=== PATIENT | male | born 1970 | race Caucasian/White ===

== ENCOUNTER 2017-07-09 22:23 | Observation (INO) | payer MEDICAID, SELFPAY ==
[~2017-07-09] VITALS: Ht 177.8 cm; Wt 69.2 kg
[2017-07-09 22:57] LABS: HEMATOCRIT 38.6 % (39.2-51.8); WHITE BLOOD COUNT 8.8 x10^3/uL (3.4-10)
[2017-07-09 23:08] LABS: ASPARTATE AMINO TRANSFERASE 18 U/L (15-37); BLOOD UREA NITROGEN 17 mg/dL (7-18)
[2017-07-09 23:13] LABS: IS PT STATUS REG ER OR PRE ER? YES
[2017-07-09 23:15] LABS: DAU SCREEN DISCLAIMER
[2017-07-09] MEDS ORDERED: ASPIRIN 325 MG TABLET ONE (23:29)
[2017-07-09] MEDS ORDERED: ASPIRIN 325 MG TABLET PO ONE (23:30)
[2017-07-09] MEDS ORDERED: PLEASE ENTER ALLERGIES MC SCH ×2 (23:30)
[2017-07-10 00:42] VITALS: BP 152/103
[2017-07-10] MEDS ORDERED: ENALAPRILAT 1.25 MG/ML, 2ML IVPush PRN (01:00)
[2017-07-10] MEDS ORDERED: ACETAMINOPHEN 325 MG TABLET PO PRN (01:00)
[2017-07-10] MEDS ORDERED: NITROGLYCERIN 0.4 MG BOTTLE (25 TABS) SL PRN (01:00)
[2017-07-10] MEDS ORDERED: ONDANSETRON ODT 4 MG PO PRN (01:00)
[2017-07-10] MEDS ORDERED: TEMAZEPAM 15 MG CAPSULE PO PRN (01:00)
[2017-07-10] MEDS ORDERED: DOCUSATE 100 MG CAPSULE PO PRN (01:00)
[2017-07-10] MEDS: HEPARIN 5,000 UNITS/ML, 1ML SQ SCH ×2 (01:19→09:59)
[2017-07-10 03:00] VITALS: BP 129/89
[2017-07-10 05:57] LABS: IS PT STATUS REG ER OR PRE ER? NO
[2017-07-10 07:58] VITALS: BP 128/88
[2017-07-10] MEDS ORDERED: REGADENOSON 0.4 MG/5 ML SYRINGE ONE (08:23)
[2017-07-10 11:25] LABS: IS PT STATUS REG ER OR PRE ER? NO
[2017-07-10 14:55] VITALS: BP 127/83
[2017-07-11] MEDS ORDERED: ASPIRIN 325 MG TABLET PO SCH (06:00)
== END 2017-07-10 17:15 | disposition home or self-care (01) ==
LOC: ED 23:45 → INTOOBSV 23:52 → EDIP 23:52 → 5SO 07-10 00:33
PROVIDERS: ADMIT Internal Medicine; ATTEND Internal Medicine
DX: I21.3 ST elevation (STEMI) myocardial infarction of unspecified site (principal); I11.9 Hypertensive heart disease without heart failure; F17.200 Nicotine dependence, unspecified, uncomplicated; F15.10 Other stimulant abuse, uncomplicated; F10.20 Alcohol dependence, uncomplicated; Z82.3 Family history of stroke; Z83.3 Family history of diabetes mellitus; Z85.07 Personal history of malignant neoplasm of pancreas; Z86.73 Personal history of transient ischemic attack (TIA), and cerebral infarction without residual deficits; C25.9 Malignant neoplasm of pancreas, unspecified
CPT/HCPCS: 36415; 71010; 78452; 80053; 80307; 83735; 84100; 84484; 85025; 93005; 93017; 93306; 96372; 99285; A9502; C9898; G0378; J1644; J2785